=== PATIENT | male | born 1960 | race Caucasian/White ===

== ENCOUNTER 2021-12-26 12:30 | Observation (INO) ==
[2021-12-26 13:15] LABS: Basophils # (auto) 0.07 K/uL (0-0.2); Basophils % (auto) 0.8 %; Eosinophils # (auto) 0.28 K/uL (0-0.50); Eosinophils % (auto) 3.1 %; Hematocrit (blood only) 42.2 % (40.1-51.0); Hemoglobin 14.6 g/dl (14.0-18.0); Immature Granulocytes # (auto) 0.02 K/uL (0.00-0.02); Immature Granulocytes % (auto) 0.2 %; Lymphocytes # (auto) 1.75 K/uL (1.2-3.4); Lymphocytes % (auto) 19.6 %; Mean Corpuscular Hemoglobin 30.9 pg (25.0-34.0); Mean Corpuscular Hgb Conc 34.6 g/dL (32.0-36.0); Mean Corpuscular Volume 89.4 fL (80.0-100.0); Mean Platelet Volume 9.1 fL (9.4-12.4); Monocytes # (auto) 0.85 K/uL (0.24-0.82); Monocytes % (auto) 9.5 %; Neutrophils # (auto) 5.97 K/uL (1.4-6.5); Neutrophils % (auto) 66.8 %; Platelet Count 173 K/uL (130-400); RDW Coefficient of Variation 11.9 % (11.5-14.5); Red Blood Count 4.72 M/uL (4.63-6.08); White Blood Count 8.94 K/ul (4.8-10.8)
[2021-12-26 13:17] LABS: Appearance Urine Clear (Clear); Bilirubin Urine Negative (Negative); Blood Urine Negative (Negative); Color Urine Dark Yellow; Glucose Urine UA Negative (Negative); Ketones Urine Trace (Negative); Leukocyte Esterase Urine Negative (Negative); Nitrite Urine Negative (Negative); Protein Urine Negative (Negative); Specific Gravity Urine 1.025 (1.000-1.030); Urobilinogen Urine Negative (Negative)
--- NOTE | 2021-12-26 13:43 | XRay Report ---
TWO VIEW CHEST CLINICAL HISTORY: Generalized weakness. FINDINGS: PA and lateral chest radiographs are compared to study dated 01/03/2015 and correlated with c hest CT dated 10/31/2014. The cardiomediastinal silhouette is unremarkable. The lungs and pleural spac es are clear. There is no pneumothorax. The bony thorax appears intact. IMPRESSION: No active disease in the chest. ACT 112: Negative or not required by law. Electronically signed by: Sidney Banks M.D. 12/26/2021 1:42 PM
[2021-12-26 13:44] LABS: Albumin Globulin Ratio 1.8 (0.9-2); Albumin Level 4.4 gm/dl (3.4-5.0); Bilirubin,Total 0.6 mg/dl (0.2-1.0); Creatinine Clr Calc Pharmacy 110.1 ml/min; Est GFR (African American) 105.1 ml/min; Est GFR (Non-African American) 90.6 ml/min; Globulin 2.4 gm/dl (2.5-4.0); Potassium 4.1 mmol/L (3.5-5.1); Total Protein 6.8 gm/dl (6.0-8.3)
[2021-12-26 13:49] LABS: Troponin I High Sensitivity 3.6 pg/ml (0-20)
--- NOTE | 2021-12-26 14:26 | Emergency Department Note ---
History of Present Illness General Chief complaint: Syncope Stated complaint: SYNCOPE LAST NIGHT Time Seen by Provider: 12/26/21 14:02 Source: patient, family ( who is at the bedside), RN notes reviewed and old records reviewed Mode of arrival: ambulatory Limitations: no limitations History of Present Illness Maximum Pain Intensity: 10 This patient is a 61-year-old male who comes in after having a syncopal episode around 230. He was camping at the [facility] and was in his trailer. He had just finished urinating and turned and then passed out. He does not think he had any symptoms prior to falling. He does not think he hit his head but he is not sure no headache or neck pain. He injured his ankle in fact he said he broke it and has a walking boot on he was seen at [facility] orthopedics and they referred him here after they treated his ankle. He has been asymptomatic besides ankle. Denies any numbness or weakness. no neck pain or stiffness. no nausea vomiting. No chest pain or shortness of breath. no abdominal pain. No heart racing or skipping no recent injury he did have a small amount of alcohol last night but does not think he was intoxicated. No fever or chills or recent illness Allergies Allergy/AdvReac Type Severity Reaction Status Date / Time birch Allergy Intermediate congestion Verified 12/20/14 08:26 oak Allergy Intermediate congestion Verified 12/20/14 08:20 grass pollen-perennial rye, Allergy Mild SEASONAL Verified 10/31/14 07:37 standar ALLERGIES - SNEEZE,ITCHY EYES, NASAL CONGESTION Past Med/Surg History Social History Smoking Status: Never smoker Preferred Language: Uzbek Feels Safe at Home: Yes Immunizations: Historyhypercholesterolemia. He may have a history of PSVT. He is not sure but it was listed on the note when they sent him over. Denies diabetes or hypertension Family history. His older brother had a pacemaker and a heart attack and at age 66. His younger brother just recently at 67 it may have been cardiac however he was being treated for cancer Review of Systems A total of 10 systems reviewed and were otherwise negative Physical Exam Vital Signs Vital Signs - 24 hr 12/26/21 12:44 12/26/21 14:10 12/26/21 15:19 Temperature 36.2 C L Temperature Source Temporal Artery Scan Pulse Rate - Lying 55 L Pulse Rate - Sitting 53 L Pulse Rate - Standing 68 Pulse Rate 67 Pulse Rate [Apical] Pulse Rhythm Regular Pulse Strength Normal Respiratory Rate 18 Respiratory Effort / Characteristics Non-Labored Spontaneous Respiratory Depth Normal Respiratory Pattern Regular Blood Pressure - Lying 122/79 Blood Pressure - Sitting 127/86 Blood Pressure- Standing 114/76 Blood Pressure 115/81 Blood Pressure [Right Arm] Blood Pressure Mean 92 Blood Pressure Mean [Right Arm] Blood Pressure Position Sitting Pulse Oximetry 96 Oxygen Delivery Method Room Air Room Air Sepsis Recent Fever Within 48 Hours No Sepsis New/Unexplained Change in Mental Status No Sepsis Action Taken by Nursing No Action Required 12/26/21 15:19 12/26/21 16:00 Temperature Temperature Source Pulse Rate - Lying Pulse Rate - Sitting Pulse Rate - Standing Pulse Rate Pulse Rate [Apical] 58 L 52 L Pulse Rhythm Pulse Strength Respiratory Rate 18 18 Respiratory Effort / Characteristics Non-Labored Respiratory Depth Normal Respiratory Pattern Blood Pressure - Lying Blood Pressure - Sitting Blood Pressure- Standing Blood Pressure Blood Pressure [Right Arm] 113/81 159/107 H Blood Pressure Mean Blood Pressure Mean [Right Arm] 91 124 Blood Pressure Position Pulse Oximetry 98 98 Oxygen Delivery Method Room Air Room Air Sepsis Recent Fever Within 48 Hours Sepsis New/Unexplained Change in Mental Status Sepsis Action Taken by Nursing General: Well developed well nourished middle-age male who appears in no acute distress, breathing comfortably on room air. Normal speech HEENT: Normal cephalic atraumatic. Pupils are equal round and reactive to light. Extraocular movements are intact. Oropharynx is pink with moist mucous membranes. No swelling of the mouth lips or tongue. Neck: Supple with a midline trachea. No meningeal signs or stiffness, no JVD or bruits. No Stridor. Chest: Clear to auscultation bilaterally. No wheezes or rhonchi. No increased work of breathing. Heart: Regular rate and rhythm without murmurs or gallops. Abdomen: Soft nontender, nondistended without rebound guarding or rigidity. Extremities: No cyanosis clubbing or edema. No calf tenderness or assymetry. There is a fracture boot on the right lower extremity Spine/Back. Non tender to palpation. No CVA tenderness Skin: Good turgor without rashes. Neurologic exam: Cranial nerves two through 12 are intact. Motor and sensation are intact and symmetrical throughout. Finger-nose intact. No pronator drift. Procedures Free Text Procedures Start Time: 1249 12/26/21 Reason: Patient with PMHx of SVT underwent ED Observation for syncope/arrhythmia. Fam Hx: Arrhythmia SocHx: See Below Summary: This patient had a syncopal episode and was placed in observation in the ED for further treatment and evaluation during which time he was on a cardiac specialist and he had no significant arrhythmia. He does have sinus bradycardia but he had 2 nonischemic EKGs which had no change compared to old or between themselves. He had 2 negative troponins. After further discussing his case and reviewing its. I do think he should be further admitted/observed for arrhythmia while in the hospital. Disposition: Admit 12/26/21 1615 Total Time: 3 hours and 26 minutes Course Administered Medications Sodium Chloride (Nss 1000ml) 1,000 mls @ 999 mls/hr IV .Q1H1M ONE Stop: 12/26/21 15:47 Last Admin: 12/26/21 15:35 Dose: 999 mls/hr Documented By: ARLENE Medical Decision Making Differential Diagnosis Syncope, vasovagal, injury, intracranial process, trauma, electrolyte or metab olic abnormality, acute coronary syndrome, anemia, infection Medical Records Attestation: I reviewed the patient's medical records. Home Medications Current Medication List: was personally reviewed by me Laboratory Data Attestation: I reviewed the patient's lab results. Result diagrams: 12/26/21 12:58 12/26/21 12:58 Lab Results 12/26/21 12/26/21 12/26/21 Range/Units 12:58 12:58 12:58 WBC 8.94 (4.8-10.8) K/ul RBC 4.72 (4.63-6.08) M/uL Hgb 14.6 (14.0-18.0) g/dl Hct 42.2 (40.1-51.0) % MCV 89.4 (80.0-100.0) fL MCH 30.9 (25.0-34.0) pg MCHC 34.6 (32.0-36.0) g/dL RDW Std Deviation 39.0 (36.4-46.3) fL RDW Coeff of Noemi 11.9 (11.5-14.5) % Plt Count 173 (130-400) K/uL MPV 9.1 L (9.4-12.4) fL Immature Gran % (Auto) 0.2 % Neut % (Auto) 66.8 % Lymph % (Auto) 19.6 % [place] % (Auto) 9.5 % Eos % (Auto) 3.1 % Baso % (Auto) 0.8 % Neut # (Auto) 5.97 (1.4-6.5) K/uL Lymph # (Auto) 1.75 (1.2-3.4) K/uL [place] # (Auto) 0.85 H (0.24-0.82) K/uL Eos # (Auto) 0.28 (0-0.50) K/uL Baso # (Auto) 0.07 (0-0.2) K/uL Immature Gran # (Auto) 0.02 (0.00-0.02) K/uL Sodium 137 (136-145) mmol/L Potassium 4.1 (3.5-5.1) mmol/L Chloride 105 (98-107) mmol/L Carbon Dioxide 25 (21-32) mmol/L Anion Gap 7 (3-11) BUN 20 (6-23) mg/dl Creatinine 0.91 (0.6-1.4) mg/dl Est Cr Clr Drug Dosing 110.1 ml/min Est GFR ( Amer) 105.1 ml/min Est GFR (Non-Af Amer) 90.6 ml/min BUN/Creatinine Ratio 22.0 H (10-20) Glucose 98 (70-99(Fasting)) mg/dl Calcium 9.0 (8.5-10.1) mg/dl Total Bilirubin 0.6 (0.2-1.0) mg/dl AST 20 (13-39) U/L ALT 30 (7-52) U/L Alkaline Phosphatase 67 (34-104) U/L Troponin I High Sens 3.6 (0-20) pg/ml Total Protein 6.8 (6.0-8.3) gm/dl Albumin 4.4 (3.4-5.0) gm/dl Globulin 2.4 L (2.5-4.0) gm/dl Albumin/Globulin Ratio 1.8 (0.9-2) TSH 2.344 (0.300-4.500) uIu/ml Urine Color Urine Appearance (Clear) Urine pH (4.5-7.5) Ur Specific [place] (1.000-1.030) Urine Protein (Negative) Urine Glucose (UA) (Negative) Urine Ketones (Negative) Urine Blood (Negative) Urine Nitrite (Negative) Urine Bilirubin (Negative) Urine Urobilinogen (Negative) Ur Leukocyte Esterase (Negative) 12/26/21 12/26/21 Range/Units 13:02 15:03 WBC (4.8-10.8) K/ul RBC (4.63-6.08) M/uL Hgb (14.0-18.0) g/dl Hct (40.1-51.0) % MCV (80.0-100.0) fL MCH (25.0-34.0) pg MCHC (32.0-36.0) g/dL RDW Std Deviation (36.4-46.3) fL RDW Coeff of Noemi (11.5-14.5) % Plt Count (130-400) K/uL MPV (9.4-12.4) fL Immature Gran % (Auto) % Neut % (Auto) % Lymph % (Auto) % [place] % (Auto) % Eos % (Auto) % Baso % (Auto) % Neut # (Auto) (1.4-6.5) K/uL Lymph # (Auto) (1.2-3.4) K/uL [place] # (Auto) (0.24-0.82) K/uL Eos # (Auto) (0-0.50) K/uL Baso # (Auto) (0-0.2) K/uL Immature Gran # (Auto) (0.00-0.02) K/uL Sodium (136-145) mmol/L Potassium (3.5-5.1) mmol/L Chloride (98-107) mmol/L Carbon Dioxide (21-32) mmol/L Anion Gap (3-11) BUN (6-23) mg/dl Creatinine (0.6-1.4) mg/dl Est Cr Clr Drug Dosing ml/min Est GFR ( Amer) ml/min Est GFR (Non-Af Amer) ml/min BUN/Creatinine Ratio (10-20) Glucose (70-99(Fasting)) mg/dl Calcium (8.5-10.1) mg/dl Total Bilirubin (0.2-1.0) mg/dl AST (13-39) U/L ALT (7-52) U/L Alkaline Phosphatase (34-104) U/L Troponin I High Sens 3.5 (0-20) pg/ml Total Protein (6.0-8.3) gm/dl Albumin (3.4-5.0) gm/dl Globulin (2.5-4.0) gm/dl Albumin/Globulin Ratio (0.9-2) TSH (0.300-4.500) uIu/ml Urine Color Dark Yellow Urine Appearance Clear (Clear) Urine pH 7.0 (4.5-7.5) Ur Specific [place] 1.025 (1.000-1.030) Urine Protein Negative (Negative) Urine Glucose (UA) Negative (Negative) Urine Ketones Trace H (Negative) Urine Blood Negative (Negative) Urine Nitrite Negative (Negative) Urine Bilirubin Negative (Negative) Urine Urobilinogen Negative (Negative) Ur Leukocyte Esterase Negative (Negative) Imaging Data Attestation: I personally reviewed and interpreted this imaging study as follows: My Impression: Chest X-rayno acute infiltrate, failure, pneumothorax seen Head CTno hemorrhage or mass-effect seen Radiologist's Impression: Chest X-Ray 12/26/21 12:49 TWO VIEW CHEST CLINICAL HISTORY: Generalized weakness. FINDINGS: PA and lateral chest radiographs are compared to study dated 01/03/2015 and correlated with chest CT dated 10/31/2014. The cardiomediastinal silhouette is unremarkable. The lungs and pleural spaces are clear. There is no pneumothorax. The bony thorax appears intact. IMPRESSION: No active disease in the chest. ACT 112: Negative or not required by law. Electronically signed by: Sidney Banks M.D. 12/26/2021 1:[address] 12/26/21 14:23 CT SCAN OF THE BRAIN WITHOUT IV CONTRAST CLINICAL HISTORY: Fall. Head injury. COMPARISON STUDY: CT of the brain dated 06/04/2014. TECHNIQUE: Unenhanced axial CT scan of the brain is performed from the vertex to the skull base. A dose lowering technique was utilized adhering to the principles of ALARA. CT DOSE: 537.48 mGy.cm FINDINGS: Brain parenchyma: The brain parenchyma is normal in appearance. There is no hemorrhage, mass effect, or evidence of acute territorial ischemia by CT criteria. Zuleta-white matter differentiation is preserved. No extra-axial fluid collection is seen. Ventricles, sulci, cisterns: Normal in configuration. Intracranial vasculature: The visualized intracranial vasculature at the skull base is normal in appearance. Calvarium: Unremarkable. Sinuses and mastoids: The visualized paranasal sinuses are clear. The mastoid air cells are well pneumatized. Orbits: The bony orbits are grossly intact. IMPRESSION: There is no hemorrhage, mass effect, or evidence of acute territorial ischemia by CT criteria. ACT 112: Negative or not required by law. Electronically signed by: Sidney Banks M.D. 12/26/2021 3:30 PM ECG Data Attestation: I personally reviewed and interpreted this ECG as follows: Indication: + syncope Rate (beats per minute): 65 Rhythm: + normal sinus ECG Intervals/blocks: + Normal QRS, + Normal QT and + Normal NV ECG Clark: + Normal ECG ST segments: + Normal ST segments ECG Findings: no PACs or no PVCs Comparison ECG Date: from (02/01/15) Change: no significant change Additional Comments: EKG #2: Sinus bradycardia with a rate of 52, no acute ischemic changes or ectopy MDM Narrative This patient comes in after a syncopal episode yesterday after urinating. It is possible this could be micturition syncope or vasovagal episode. He did break his right ankle which has been addressed by orthopedics who referred him here he had no chest pain or shortness of breath has a normal neurologic exam. He is not sure if he hit his head I did a CT of the head is unremarkable. EKG does not to suggest acute coronary syndrome or arrhythmia. He has no significant electrolyte or metabolic abnormalities. Troponin was unremarkable and a second troponin was also unremarkable. Given the patient's cardiac risk factors and his sudden syncope, I do think he should be admitted/observed for cardiac work- up. I have discussed case with the [facility] hospitalist as well as the patient's . He will be seen in the ED for these measures. Continuous cardiac monitoring: Orders placed in the EMR and upon my interpretation the patient was noted to be in normal sinus rhythm with a rate of 60. Impression & Plan Syncope, Ankle fracture, CHI (closed head injury), Family history of coronary artery disease Discharge Plan Visit Data Chief Complaint: Syncope Stated Complaint: SYNCOPE LAST NIGHT ED Provider: Tamir Alvarez Discharge Problem: Syncope, Ankle fracture, CHI (closed head injury), Family history of coronary artery disease Forms Stand Alone Forms: [facility] Referrals Referrals: Ward Lopez MD [Primary Care Provider] -
[2021-12-26] MEDS ORDERED: SODIUM CHLORIDE 0.9% 1000ML 1,000 ML IV ONE (14:47)
--- NOTE | 2021-12-26 15:31 | CT Scan Report ---
CT SCAN OF THE BRAIN WITHOUT IV CONTRAST CLINICAL HISTORY: Fall. Head injury. COMPARISON STUDY: CT of the brain dated 06/04/2014. TECHNIQUE: Unenhanced axial CT scan of the brain is performed from the vertex to the skull base. A d ose lowering technique was utilized adhering to the principles of ALARA. CT DOSE: 537.48 mGy.cm FINDINGS: Brain parenchyma: The brain parenchyma is normal in appearance. There is no hemorrhage, mass effect, or evidence of acute territorial ischemia by CT criteria. Zuleta-white matter differentiation is preser radha. No extra-axial fluid collection is seen. Ventricles, sulci, cisterns: Normal in configuration. Intracranial vasculature: The visualized intracranial vasculature at the skull base is normal in appe arance. Calvarium: Unremarkable. Sinuses and mastoids: The visualized paranasal sinuses are clear. The mastoid air cells are well pneu matized. Orbits: The bony orbits are grossly intact. IMPRESSION: There is no hemorrhage, mass effect, or evidence of acute territorial ischemia by CT francesco marie. ACT 112: Negative or not required by law. Electronically signed by: Sidney Banks M.D. 12/26/2021 3:30 PM
--- NOTE | 2021-12-26 16:01 | Electrocardiogram Report ---
Test Reason : Blood Pressure : / mmHG Vent. Rate : 065 BPM Atrial Rate : 065 BPM P-R Int : 182 ms QRS Dur : 088 ms QT Int : 384 ms P-R-T Axes : 067 063 049 degrees QTc Int : 399 ms Normal sinus rhythm Normal ECG When compared with ECG of 01-FEB-2015 14:46, No significant change was found Confirmed by Randy Reyes ([id number]) on 12/26/2021 4:01:02 PM Referred By: Confirmed By:Randy Reyes
--- NOTE | 2021-12-26 16:15 | History & Physical Report ---
Date of Service December 26, 2021 Assessment & Plan (1) Syncope: Plan: Patient is 61 y/o M with PMH sinus bradycardia, symptomatic junctional rhythm, ectopic atrial rhythm, dyslipidemia, anxiety presented to ER with complaint of syncope occurred during middle of night while urinating. In ER vital stable. Labs unremarkable. [address] head no acute intracranial abnormality DDX: micturition syncope, orthostatic hypotension, arrhythmia Initial orthostatics unremarkable In ER given 1L NSS Repeat orthostatics tomorrow morning Monitor on telemetry May need to consider outpatient ZIO for cardiac monitoring CBC, BMP in am (2) Ankle fracture: Plan: Right ankle injury occurred after fall from syncope Seen by [facility] ortho outpatient today. Right ankle XRay: Right distal fibula fracture. Immobilized in Cam boot with nonweight bearing with crutches. Has f/u on 01/02/22 at 2pm Rest, elevate and ice area (3) Sinus bradycardia: (4) Junctional rhythm: (5) Ectopic atrial rhythm: Plan: History Symptomatic junctional rhythm, ectopic atrial rhythm. Seen by EP-Dr Ramirez in 04/2021 and no pacemaker was recommended. Recommended to avoid AV node blockers Monitor on tele (6) Dyslipidemia: Plan: Continue rosuvastatin (7) Anxiety: Plan: Continue home meds DVT Prophylaxis SCDs Full Code as per discussion with pt Follows with Dr Lopez for routine care Pt was seen and care coordinated with Dr Burleson. See addendum History of Present Illness Chief Complaint: Syncope Primary Care Provider: Ward Lopez MD Patient is 61 y/o M with PMH sinus bradycardia, symptomatic junctional rhythm, ectopic atrial rhythm, dyslipidemia, anxiety presented to ER with complaint of syncope. Patient reports is camping at [facility] and during the middle of the night got up to urinate around 2:30 AM when he was finished urinating he reports he passed out. His was in the camper and heard him fall and immediately went to him and reports he did not respond to his name initially but then opened his eyes and was responding to her. Patient denies any dizziness, chest pain, palpitations, shortness of breath prior to fall. Yesterday he reports he was walking around at the [facility] for most of the day. He drank approximately 24 ounces of water and 2 glasses of iced tea, 1 pot of coffee. Patient reports typically he drinks over 60 ounces of water daily. He had 1 mixed drink last evening. He did eat dinner. Patient reports right ankle pain after the fall. Ambulating on the ankle with increased pain. He was seen at [facility] today and had xray right ankle showing distal fibula fracture. He was placed in Cam boot, given crutches and has follow up in one week. Patient reports otherwise does not have any other symptoms or complaints. Denies fever/chills, diaphoresis, N/V/D/C, DURBIN, dizziness, vision changes, neck pain, CP, SOB, orthopnea, palpitations, cough, sore throat, choking, otalgia, rhinorrhea, abdominal pain, paresthesias, weakness, extremity edema, rashes, urinary symptoms. In ER vital stable. Labs unremarkable. [address] head no acute intracranial abnormality Allergies Allergy/AdvReac Type Severity Reaction Status Date / Time birch Allergy Intermediate congestion Verified 12/20/14 08:26 oak Allergy Intermediate congestion Verified 12/20/14 08:20 grass pollen-perennial rye, Allergy Mild SEASONAL Verified 10/31/14 07:37 standar ALLERGIES - SNEEZE,ITCHY EYES, NASAL CONGESTION Home Medications Medication Instructions Recorded Confirmed Type aspirin 81 mg tablet 81 mg PO DAILY 12/26/21 12/26/21 History buspirone 10 mg tablet 10 mg PO DAILY 12/26/21 12/26/21 History duloxetine 30 mg capsule,delayed 30 mg PO DAILY 12/26/21 12/26/21 History release fluoxetine 40 mg capsule 40 mg PO DAILY 12/26/21 12/26/21 History rosuvastatin 20 mg tablet 20 mg PO HS 12/26/21 12/26/21 History trazodone 150 mg tablet 150 mg PO HS 12/26/21 12/26/21 History Past Med/Surg History Medical History Anxiety Dyslipidemia Ectopic atrial rhythm Junctional rhythm PTSD (post-traumatic stress disorder) Sinus bradycardia Surgical History H/O inguinal hernia repair Social History Smoking Status: Never smoker Hx Alcohol Use: Yes Alcohol type: beer and wine Hx Substance Use: No Preferred Language: Andorran Current Living Situation: Spouse Feels Safe at Home: Yes Assistive Devices: Brace/Splint/Immobilizer and Crutches Review of Systems Review of Systems: All systems reviewed & are unremarkable except as noted in HPI & below Physical Exam Physical Exam: General: no distress, WDWN Head: normocephalic, atraumatic Eyes: PERRL, EOM's intact, conjunctiva non-injected, anicteric ENT: normal inspection external ears, nose, mucous membranes moist Neck: supple, trachea midline Lungs: clear, no respiratory distress, no wheezing/rhonchi/rales CV: RRR, no murmur, no pretibial edema Abd: normal BS, soft, non-tender Ext: no calf tenderness; RLE: right ankle/foot in cam boot Neuro: A&O x 3, no focal deficits noted, normal affect Skin: warm, dry Results & Data Results & Data ([facility]) Vital Signs (Past 12 Hours) Vital Signs Temp Pulse Pulse Resp BP BP Pulse Ox 12/26/21 15:19 58 L 18 113/81 98 12/26/21 15:19 12/26/21 12:44 36.2 C L 67 18 115/81 96 O2 Del Method 12/26/21 15:19 Room Air 12/26/21 15:19 Room Air 12/26/21 12:44 Room Air Laboratory Results Short CBC 12/26/21 Range/Units 12:58 WBC 8.94 (4.8-10.8) K/ul Hgb 14.6 (14.0-18.0) g/dl Hct 42.2 (40.1-51.0) % Plt Count 173 (130-400) K/uL BMP 12/26/21 12:58 Sodium 137 Potassium 4.1 Chloride 105 Carbon Dioxide 25 BUN 20 Creatinine 0.91 Glucose 98 Calcium 9.0 Liver Function 12/26/21 Range/Units 12:58 Total Bilirubin 0.6 (0.2-1.0) mg/dl AST 20 (13-39) U/L ALT 30 (7-52) U/L Alkaline Phosphatase 67 (34-104) U/L Albumin 4.4 (3.4-5.0) gm/dl Urine 12/26/21 Range/Units 13:02 Urine Color Dark Yellow Urine Appearance Clear (Clear) Urine pH 7.0 (4.5-7.5) Ur Specific [place] 1.025 (1.000-1.030) Urine Protein Negative (Negative) Urine Glucose (UA) Negative (Negative) Diagnostic Findings Chest X-Ray 12/26/21 12:49 TWO VIEW CHEST CLINICAL HISTORY: Generalized weakness. FINDINGS: PA and lateral chest radiographs are compared to study dated 01/03/2015 and correlated with chest CT dated 10/31/2014. The cardiomediastinal silhouette is unremarkable. The lungs and pleural spaces are clear. There is no pneumothorax. The bony thorax appears intact. IMPRESSION: No active disease in the chest. ACT 112: Negative or not required by law. Electronically signed by: Sidney Banks M.D. 12/26/2021 1:[address] 12/26/21 14:23 CT SCAN OF THE BRAIN WITHOUT IV CONTRAST CLINICAL HISTORY: Fall. Head injury. COMPARISON STUDY: CT of the brain dated 06/04/2014. TECHNIQUE: Unenhanced axial CT scan of the brain is performed from the vertex to the skull base. A dose lowering technique was utilized adhering to the principles of ALARA. CT DOSE: 537.48 mGy.cm FINDINGS: Brain parenchyma: The brain parenchyma is normal in appearance. There is no hemorrhage, mass effect, or evidence of acute territorial ischemia by CT criteria. Zuleta-white matter differentiation is preserved. No extra-axial fluid collection is seen. Ventricles, sulci, cisterns: Normal in configuration. Intracranial vasculature: The visualized intracranial vasculature at the skull base is normal in appearance. Calvarium: Unremarkable. Sinuses and mastoids: The visualized paranasal sinuses are clear. The mastoid air cells are well pneumatized. Orbits: The bony orbits are grossly intact. IMPRESSION: There is no hemorrhage, mass effect, or evidence of acute territorial ischemia by CT criteria. ACT 112: Negative or not required by law. Electronically signed by: Sidney Banks M.D. 12/26/2021 3:30 PM ECG Rate (beats per minute): 65 Rhythm: normal sinus Supervising Physician Co-Signing Physician Notes delayed entry date of service noted above Attending Addendum: care coordinated with PA Laura S. please refer to her notes for full details, I agree with her notes patient seen and examined, records reviewed by myself as well on exam, patient seen sitting up in bed, comfortable, in good spirits states he feels fine overall no chest pain, dyspnea, palpitations, dizziness Hunter Burleson MD (1) Syncope Syncope type: unspecified Qualified Code(s): R55 - Syncope and collapse (2) Ankle fracture Encounter type: initial encounter Fracture type: closed Laterality: left Qualified Code(s): S82.892A - Other fracture of left lower leg, initial encounter for closed fracture
[2021-12-26] MEDS ORDERED: POLYETHYLENE (MIRALAX) 17 GM PACK PO PRN (20:26)
[2021-12-26] MEDS ORDERED: ACETAMINOPHEN 325 MG TAB PO PRN (20:26)
[2021-12-26] MEDS ORDERED: ROSUVASTATIN CALCIUM 20 MG TAB PO SCH (21:00)
[2021-12-26] MEDS ORDERED: traZODone HCL 50 MG TAB PO SCH (21:00)
[2021-12-27 08:22] LABS: Hemoglobin 13.2 g/dl (14.0-18.0); Mean Corpuscular Hemoglobin 30.5 pg (25.0-34.0); Mean Corpuscular Hgb Conc 33.8 g/dL (32.0-36.0); Mean Corpuscular Volume 90.1 fL (80.0-100.0); Mean Platelet Volume 9.3 fL (9.4-12.4); Platelet Count 149 K/uL (130-400); RDW Coefficient of Variation 11.9 % (11.5-14.5); RDW Standard Deviation 38.8 fL (36.4-46.3); Red Blood Count 4.33 M/uL (4.63-6.08); White Blood Count 6.83 K/ul (4.8-10.8)
[2021-12-27] MEDS ORDERED: ASPIRIN 81 MG ECTAB PO SCH (09:00)
[2021-12-27] MEDS ORDERED: FLUoxetine HCL 20 MG CAP PO SCH (09:00)
[2021-12-27] MEDS ORDERED: busPIRone 5 MG TAB PO SCH (09:00)
[2021-12-27] MEDS ORDERED: DULoxetine HCL 30 MG CAP PO SCH (09:00)
[2021-12-27 09:01] LABS: BUN Creatinine Ratio 17.3 (10-20); Calcium 8.9 mg/dl (8.5-10.1); Creatinine Clr Calc Pharmacy 103.6 ml/min; Est GFR (African American) 96.1 ml/min; Est GFR (Non-African American) 82.9 ml/min; Potassium 4.6 mmol/L (3.5-5.1)
--- NOTE | 2021-12-27 12:03 | Hospitalist Progress Note ---
Date of Service December 27, 2021 Delayed entry Date of service as noted above Assessment & Plan (1) Syncope: Plan: Per PAYAM García S notes with addendum: Patient is 61 y/o M with PMH sinus bradycardia, symptomatic junctional rhythm, ectopic atrial rhythm, dyslipidemia, anxiety presented to ER with complaint of syncope occurred during middle of night while urinating. In ER vital stable. Labs unremarkable. [address] head no acute intracranial abnormality DDX: micturition syncope, orthostatic hypotension, arrhythmia Initial orthostatics unremarkable In ER given 1L NSS 12/27 personnel monitor: Unrevealing Patient clinically improved Discharge to home Consider outpatient residential monitor (2) Ankle fracture: Plan: Right ankle injury occurred after fall from syncope Seen by [facility] outpatient today. Right ankle XRay: Right distal fibula fracture. Immobilized in Cam boot with nonweight bearing with crutches. Has f/u on 01/02/22 at 2pm Rest, elevate and ice area 12/27 Stable (3) Sinus bradycardia: (4) Junctional rhythm: (5) Ectopic atrial rhythm: Plan: History Symptomatic junctional rhythm, ectopic atrial rhythm. Seen by EP-Dr Ramirez in 04/2021 and no pacemaker was recommended. Recommended to avoid AV node blockers (6) Dyslipidemia: Plan: Continue rosuvastatin (7) Anxiety: Plan: Continue home meds DVT Prophylaxis SCDs Full Code as per discussion with pt Follows with Dr Lopez for routine care Admission and Anticipated Discharge Date Admission Date: December 26, 2021 Subjective Follow-up for syncope Seen resting in bed, comfortable, not in distress States he feels fine overall No dizziness, headache, chest pain, shortness of breath, palpitations Ambulating in the room with no problems States he is ready for discharge No other symptoms Review of Systems Review of Systems: all noted and negative except for above Physical Exam Physical Exam: General- oriented x 3, not in distress, speaks in sentences with no effort or accessory muscle use Eyes- anicteric Neck- no JVD Lungs- clear BS bilaterally, no rales/wheezes Heart- normal rate, regular rhythm; no murmurs Abdomen- normal bowel sounds, nondistended, soft, nontender Extremities- no pretibial edema, no calf tenderness Neuro- alert, oriented x 3; no gross focal neurologic deficits Skin- warm & dry Results & Data Results & Data ([facility]) Vital Signs (Past 12 Hours) Vital Signs Temp Pulse Pulse Resp BP BP Pulse Ox 12/27/21 11:33 36.8 C 59 L 16 123/78 96 12/27/21 07:56 66 12/27/21 07:52 36.9 C 68 18 112/65 97 12/27/21 02:43 36.8 C 61 18 98/55 L 96 12/27/21 01:12 63 O2 Del Method 12/27/21 11:33 Room Air 12/27/21 07:56 12/27/21 07:52 Room Air 12/27/21 02:43 Room Air 12/27/21 01:12 all noted and reviewed including below (1) Syncope Syncope type: unspecified Qualified Code(s): R55 - Syncope and collapse (2) Ankle fracture Encounter type: initial encounter Fracture type: closed Laterality: left Qualified Code(s): S82.892A - Other fracture of left lower leg, initial encounter for closed fracture
--- NOTE | 2021-12-27 15:26 | Electrocardiogram Report ---
Test Reason : Blood Pressure : / mmHG Vent. Rate : 052 BPM Atrial Rate : 052 BPM P-R Int : 170 ms QRS Dur : 090 ms QT Int : 442 ms P-R-T Axes : 018 017 017 degrees QTc Int : 411 ms Sinus bradycardia Otherwise normal ECG When compared with ECG of 26-DEC-2021 12:53, No significant change was found Confirmed by Flaco Sauceda ([id number]) on 12/27/2021 3:26:04 PM Referred By: JOSE GUZMAN Confirmed By:Flaco Sauceda
--- NOTE | 2021-12-27 16:00 | Electrocardiogram Report ---
Test Reason : Blood Pressure : / mmHG Vent. Rate : 053 BPM Atrial Rate : 053 BPM P-R Int : 196 ms QRS Dur : 094 ms QT Int : 426 ms P-R-T Axes : 070 061 053 degrees QTc Int : 399 ms Sinus bradycardia Otherwise normal ECG When compared with ECG of 26-DEC-2021 16:21, (unconfirmed) No significant change was found Confirmed by Flaco Sauceda ([id number]) on 12/27/2021 4:00:14 PM Referred By: JOSE GUZMAN Confirmed By:Flaco Sauceda
--- NOTE | 2021-12-27 19:26 | Discharge Summary ---
Date of Service December 27, 2021 Delayed entry Date of service as per above Admission HPI Per Admitting Provider Patient is 61 y/o M with PMH sinus bradycardia, symptomatic junctional rhythm, ectopic atrial rhythm, dyslipidemia, anxiety presented to ER with complaint of syncope. Patient reports is camping at [facility] and during the middle of the night got up to urinate around 2:30 AM when he was finished urinating he reports he passed out. His was in the camper and heard him fall and immediately went to him and reports he did not respond to his name initially but then opened his eyes and was responding to her. Patient denies any dizziness, chest pain, palpitations, shortness of breath prior to fall. Yesterday he reports he was walking around at the [facility] for most of the day. He drank approximately 24 ounces of water and 2 glasses of iced tea, 1 pot of coffee. Patient reports typically he drinks over 60 ounces of water daily. He had 1 mixed drink last evening. He did eat dinner. Patient reports right ankle pain after the fall. Ambulating on the ankle with increased pain. He was seen at [facility] today and had xray right ankle showing distal fibula fracture. He was placed in Cam boot, given crutches and has follow up in one week. Patient reports otrima rwise does not have any other symptoms or complaints. Denies fever/chills, diaphoresis, N/V/D/C, DURBIN, dizziness, vision changes, neck pain, CP, SOB, orthopnea, palpitations, cough, sore throat, choking, otalgia, rhinorrhea, abdominal pain, paresthesias, weakness, extremity edema, rashes, urinary symptoms. In ER vital stable. Labs unremarkable. [address] head no acute intracranial abnormality Admission Exam Per Admitting Provider General: no distress, WDWN Head: normocephalic, atraumatic Eyes: PERRL, EOM's intact, conjunctiva non-injected, anicteric ENT: normal inspection external ears, nose, mucous membranes moist Neck: supple, trachea midline Lungs: clear, no respiratory distress, no wheezing/rhonchi/rales CV: RRR, no murmur, no pretibial edema Abd: normal BS, soft, non-tender Ext: no calf tenderness; RLE: right ankle/foot in cam boot Neuro: A&O x 3, no focal deficits noted, normal affect Skin: warm, dry Principal Diagnosis Syncope, likely secondary to vasovagal reflex Discharge Exam General- oriented x 3, not in distress, speaks in sentences with no effort or accessory muscle use Eyes- anicteric Neck- no JVD Lungs- clear BS bilaterally, no rales/wheezes Heart- normal rate, regular rhythm; no murmurs Abdomen- normal bowel sounds, nondistended, soft, nontender Extremities- no pretibial edema, no calf tenderness Neuro- alert, oriented x 3; no gross focal neurologic deficits Skin- warm & dry Discharge Data Allergies Allergy/AdvReac Type Severity Reaction Status Date / Time birch Allergy Intermediate congestion Verified 12/20/14 08:26 oak Allergy Intermediate congestion Verified 12/20/14 08:20 grass pollen-perennial rye, Allergy Mild SEASONAL Verified 10/31/14 07:37 standar ALLERGIES - SNEEZE,ITCHY EYES, NASAL CONGESTION Consultations 12/26/21 16:01 ED Decision to Admit Stat Ordered Studies 12/26/21 14:23 CT head/brain wo con Stat COMPARISON STUDY: CT of the brain dated 06/04/2014. TECHNIQUE: Unenhanced axial CT scan of the brain is performed from the vertex to the skull base. A dose lowering technique was utilized adhering to the principles of ALARA. CT DOSE: 537.48 mGy.cm FINDINGS: Brain parenchyma: The brain parenchyma is normal in appearance. There is no hemorrhage, mass effect, or evidence of acute territorial ischemia by CT criteria. Zuleta-white matter differentiation is preserved. No extra-axial fluid collection is seen. Ventricles, sulci, cisterns: Normal in configuration. Intracranial vasculature: The visualized intracranial vasculature at the skull base is normal in appearance. Calvarium: Unremarkable. Sinuses and mastoids: The visualized paranasal sinuses are clear. The mastoid air cells are well pneumatized. Orbits: The bony orbits are grossly intact. IMPRESSION: There is no hemorrhage, mass effect, or evidence of acute territorial ischemia by CT criteria. ACT 112: Negative or not required by law. Electronically signed by: Sidney Banks M.D. 12/26/2021 3:30 PM Hospital Course (1) Syncope: Elizabeth Mckay notes with addendum: Patient is 61 y/o M with PMH sinus bradycardia, symptomatic junctional rhythm, ectopic atrial rhythm, dyslipidemia, anxiety presented to ER with complaint of syncope occurred during middle of night while urinating. In ER vital stable. Labs unremarkable. [address] head no acute intracranial abnormality DDX: micturition syncope, orthostatic hypotension, arrhythmia Initial orthostatics unremarkable In ER given 1L NSS 12/27 Echo: 65%, no segmental left ventricular wall motion abnormalities, normal diastolic function, no significant valvular pathology quality assurance monitor final: Unrevealing Patient clinically improved Discharge to home Consider outpatient radiation monitor (2) Ankle fracture: Right ankle injury occurred after fall from syncope Seen by [facility] outpatient today. Right ankle XRay: Right distal fibula fracture. Immobilized in Cam boot with nonweight bearing with crutches. Has f/u on 01/02/22 at 2pm Rest, elevate and ice area 12/27 Stable (3) Sinus bradycardia: (4) Junctional rhythm: (5) Ectopic atrial rhythm: History Symptomatic junctional rhythm, ectopic atrial rhythm. Seen by EP-Dr Ramirez in 04/2021 and no pacemaker was recommended. Recommended to avoid AV node blockers (6) Dyslipidemia: Continue rosuvastatin (7) Anxiety: Continue home meds DVT Prophylaxis SCDs Full Code as per discussion with pt Follows with Dr Lopez for routine care Total Time Total Time Spent Total Time Spent (In Minutes): >30 minutes Discharge Plan Discharge Items Patient Disposition: Home - Self-Care Reason For Visit: SYNCOPE LAST NIGHT, BROKE ANKLE, REF Discharge Diagnosis: SYNCOPE Activity: Resume your previous activity Activity Comment: INCREASE ACTIVITY GRADUALLY TOLERATED Driving/Machine Use: AVOID DRIVING UNTIL RE-EVALUATED AND ALLOWED BY PRIMARY CARE PHYSICIAN Non-emergency contact: Primary Care Provider Call non-emergency contact if: you have any medication questions, your symptoms worsen, your pain is not controlled, your pain is worsening, your pain is unusual for you, your pain is concerning for you and you have a fever Follow-up/Referrals: Ward Lopez MD [Primary Care Provider] - Diet: Heart Healthy Addtl Attending Provider Instructions: PLEASE RESUME YOUR USUAL MEDICATIONS. PLEASE CALL YOUR PRIMARY CARE PHYSICIAN OR RETURN TO THE ER IF WITH WORSENING OF SYMPTOMS, INCLUDING dizziness, palpitations, chest pain, etc DRINK PLENTY OF WATER- AT LEAST 8-10 GLASSES PER DAY. FOLLOW UP WITH PRIMARY CARE PHYSICIAN IN 1 WEEK. THE CLINIC WILL BE CALLING YOU SOON FOR THE APPOINTMENT. Pending Studies at Discharge: No Stand-Alone Forms: My [facility], Smoking Cessation Medications and DC Order Prescriptions: Continued trazodone 150 mg tablet 150 mg PO HS buspirone 10 mg tablet 10 mg PO DAILY rosuvastatin 20 mg tablet 20 mg PO HS duloxetine 30 mg capsule,delayed release(DR/EC) 30 mg PO DAILY aspirin 81 mg Tablet 81 mg PO DAILY fluoxetine 40 mg capsule 40 mg PO DAILY Discharge Orders: Discharge Order (Routine); Ordered 12/27/21 Ordered By: Hunter Burleson Admission Data Admit Date/Time: 12/26/21 16:19 Attending Provider: Hunter Burleson Admit Provider: Hunter Burleson Primary Care Provider: Ward oLpez Other Providers: Hunter Burleson Other Interventions: Discharge Summary Assessment (RN) Last Done: 12/27/21 12:07
== END 2021-12-27 12:15 | disposition home or self-care (01) ==
LOC: 2N 12:30 → ED 12:30 → 2N 19:57
DX: Y92.833 Campsite as the place of occurrence of the external cause; W19.XXXA Unspecified fall, initial encounter; R55 Syncope and collapse; S82.892A Other fracture of left lower leg, initial encounter for closed fracture